=== PATIENT | male | born 1945 | race Two or more races ===

== ENCOUNTER 2024-02-08 10:33 | Inpatient (IN) | payer SELFPAY ==
[~2024-02-08] VITALS: Ht 157.5 cm; Wt 62.1 kg
[2024-02-08 11:42] LABS: BASOPHILS # (AUTO) 0.1 K/uL (0.0-0.2); BASOPHILS % (AUTO) 1.7 % (0.0-2.0); EOSINOPHILS # (AUTO) 1.6 K/uL (0.0-0.7); HEMATOCRIT 41 % (39-51); HEMOGLOBIN 13.8 g/dL (13.5-17.5); LYMPHOCYTES # (AUTO) 1.3 K/uL (0.8-4.8); LYMPHOCYTES % (AUTO) 20.9 % (20.0-44.0); MEAN CORPUSCULAR HEMOGLOBIN 32 PG (26.0-33.0); MEAN CORPUSCULAR HGB CONC 34 g/dl (31.0-36.0); MEAN CORPUSCULAR VOLUME 93 fL (80-96); MONOCYTES # (AUTO) 0.4 K/uL (0.1-1.30); MONOCYTES % (AUTO) 6.2 % (2.0-12.0); NEUTROPHILS # (AUTO) 2.9 K/uL (1.8-8.9); NEUTROPHILS % (AUTO) 45.7 % (43.0-81.0); PLATELET COUNT (AUTO) 120 K/uL (150-450); RED BLOOD CELL COUNT(AUTO) 4.39 MIL/uL (4.5-6.0); RED CELL DISTRIBUTION WIDTH 14.8 % (11.5-15.0); WHITE BLOOD COUNT (AUTO) 6.4 K/uL (4.3-11.0)
[2024-02-08] MEDS ORDERED: [UNRECOGNIZED DRUG - OTHER] PO (11:45)
[2024-02-08] MEDS ORDERED: [UNRECOGNIZED DRUG - OTHER] PO (11:45)
[2024-02-08] MEDS ORDERED: INSU100V7 SQ (11:45)
[2024-02-08] MEDS ORDERED: EMPA1TAB11 PO (11:45)
[2024-02-08] MEDS ORDERED: SEMA0.25 SQ (11:45)
[2024-02-08 11:51] LABS: CALCIUM, SERUM 8.8 mg/dL (8.5-10.1); CARBON DIOXIDE 20 mmol/L (21-32); CHLORIDE 102 mmol/L (98-107); CREATININE 1.1 mg/dL (0.6-1.3); GLUCOSE 162 mg/dL (74-106); POTASSIUM 4.6 mmol/L (3.5-5.1); SODIUM SERUM 136 mmol/L (136-145); UREA NITROGEN, BLOOD 21 mg/dL (7-18)
[2024-02-08 11:54] LABS: EOSINOPHILS % (AUTO) 25.5 % (0.0-6.0)
[2024-02-08] MEDS ORDERED: DEXTROSE 50%-WATER 50 ML DISP.SYRIN IV PRN (13:00)
[2024-02-08] MEDS ORDERED: MAG HYDROX/AL HYDROX/SIMETH 30 ML UDC PO PRN (13:00)
[2024-02-08] MEDS ORDERED: Medication Not On Formulary EA (Semaglutide (Ozempic) 0.25 MG) SQ SCH (13:00)
[2024-02-08] MEDS ORDERED: ONDANSETRON HCL/PF 4 MG/2 ML VIAL IVP PRN (13:00)
[2024-02-08] MEDS ORDERED: Z GUARD REMEDY 4 OZ OINT TP PRN (13:00)
[2024-02-08] MEDS ORDERED: MAGNESIUM HYDROXIDE 30 ML UDC PO PRN (13:00)
[2024-02-08 13:51] LABS: ANISOCYTOSIS 1+; BASOPHILS % (MANUAL) 0 % (0.0-2.0); EOSINOPHILS % (MANUAL) 23 % (0-4); LYMPHOCYTES % (MANUAL) 18 % (16-48); MONOCYTES % (MANUAL) 8 % (0-11.0); NEUTROPHILS % (MANUAL) 51 (42-76); PLATELET ESTIMATE DECREASED
[2024-02-08] MEDS: ASPIRIN EC 81 MG TABLET.DR PO STA (14:31)
[2024-02-08 16:00] VITALS: BP 125/69; TEMP 98.4; O2SAT 95
[2024-02-08] MEDS: BLOOD SUGAR DIAGNOSTIC 1 EACH STRIP IN SCH (17:51)
[2024-02-08] MEDS: INSULIN REGULAR, HUMAN 100 UNIT/ML 3 ML VIAL SQ PRN (18:09)
[2024-02-08 20:00] VITALS: BP 115/69; TEMP 98.1; O2SAT 93
[2024-02-08] MEDS: ENOXAPARIN SODIUM 40 MG/0.4 ML DISP.SYRIN SQ SCH (21:30)
[2024-02-08] MEDS: INSULIN GLARGINE, 100 UNIT/ML CARTRIDGE SQ SCH (21:54)
[2024-02-09] VITALS: BP 102/59; TEMP 97.5; O2SAT 93
[2024-02-09 04:00] VITALS: BP 109/65; TEMP 97.5; O2SAT 95
[2024-02-09 06:20] LABS: BASOPHILS # (AUTO) 0.1 K/uL (0.0-0.2); BASOPHILS % (AUTO) 1.3 % (0.0-2.0); EOSINOPHILS # (AUTO) 1.7 K/uL (0.0-0.7); EOSINOPHILS % (AUTO) 23.9 % (0.0-6.0); HEMATOCRIT 41 % (39-51); HEMOGLOBIN 13.4 g/dL (13.5-17.5); LYMPHOCYTES # (AUTO) 1.4 K/uL (0.8-4.8); LYMPHOCYTES % (AUTO) 20.1 % (20.0-44.0); MEAN CORPUSCULAR HEMOGLOBIN 31 PG (26.0-33.0); MEAN CORPUSCULAR HGB CONC 33 g/dl (31.0-36.0); MEAN CORPUSCULAR VOLUME 94 fL (80-96); MONOCYTES # (AUTO) 0.5 K/uL (0.1-1.30); MONOCYTES % (AUTO) 7.9 % (2.0-12.0); NEUTROPHILS # (AUTO) 3.2 K/uL (1.8-8.9); NEUTROPHILS % (AUTO) 46.8 % (43.0-81.0); PLATELET COUNT (AUTO) 116 K/uL (150-450); RED BLOOD CELL COUNT(AUTO) 4.31 MIL/uL (4.5-6.0); RED CELL DISTRIBUTION WIDTH 14.4 % (11.5-15.0); WHITE BLOOD COUNT (AUTO) 6.9 K/uL (4.3-11.0)
[2024-02-09 06:38] LABS: CALCIUM, SERUM 8.8 mg/dL (8.5-10.1); CARBON DIOXIDE 16 mmol/L (21-32); CHLORIDE 104 mmol/L (98-107); GLUCOSE 101 mg/dL (74-106); MAGNESIUM 2.2 mg/dL (1.8-2.4); PHOSPHORUS 4.2 mg/dL (2.5-4.9); POTASSIUM 3.8 mmol/L (3.5-5.1); SODIUM SERUM 134 mmol/L (136-145); UREA NITROGEN, BLOOD 24 mg/dL (7-18)
[2024-02-09 06:50] LABS: CHOLESTEROL 185 mg/dL (<200); HDL CHOLESTEROL 41 mg/dL (40-60); LDL 128 mg/dL (0-99); TRIGLYCERIDES 112 mg/dL (30-150)
[2024-02-09 07:00] VITALS: BP 116/53; TEMP 97.3; O2SAT 94
[2024-02-09 07:23] LABS: BASOPHILS % (MANUAL) 1 % (0.0-2.0); EOSINOPHILS % (MANUAL) 26 % (0-4); LYMPHOCYTES % (MANUAL) 18 % (16-48); MONOCYTES % (MANUAL) 7 % (0-11.0); NEUTROPHILS % (MANUAL) 48 (42-76); PLATELET ESTIMATE DECREASED
[2024-02-09] MEDS: ASPIRIN 81 MG TAB.CHEW PO SCH (08:38)
[2024-02-09] MEDS ORDERED: [UNRECOGNIZED DRUG - OTHER] PO SCH (09:00)
[2024-02-09] MEDS: LEVOTHYROXINE SODIUM 75 MCG TABLET PO SCH (10:51)
[2024-02-09 12:00] VITALS: BP 98/53; TEMP 97.2; O2SAT 94
[2024-02-09 16:00] VITALS: BP 101/57; TEMP 98.1; O2SAT 94
[2024-02-09 20:00] VITALS: BP 111/64; TEMP 98.2; O2SAT 93
[2024-02-10] VITALS: BP 113/62; TEMP 98; O2SAT 94
[2024-02-10] MEDS: ACETAMINOPHEN 325 MG TABLET PO PRN (00:11)
[2024-02-10 04:00] VITALS: BP 99/52; TEMP 97.5; O2SAT 95
[2024-02-10 05:00] VITALS: BP 99/52; TEMP 97.5; O2SAT 95
[2024-02-10 06:42] LABS: BASOPHILS # (AUTO) 0.1 K/uL (0.0-0.2); BASOPHILS % (AUTO) 1.4 % (0.0-2.0); EOSINOPHILS # (AUTO) 1.9 K/uL (0.0-0.7); HEMATOCRIT 40 % (39-51); HEMOGLOBIN 13.3 g/dL (13.5-17.5); LYMPHOCYTES # (AUTO) 1.5 K/uL (0.8-4.8); LYMPHOCYTES % (AUTO) 20.2 % (20.0-44.0); MEAN CORPUSCULAR HEMOGLOBIN 31 PG (26.0-33.0); MEAN CORPUSCULAR HGB CONC 33 g/dl (31.0-36.0); MEAN CORPUSCULAR VOLUME 94 fL (80-96); MONOCYTES # (AUTO) 0.6 K/uL (0.1-1.30); MONOCYTES % (AUTO) 8.3 % (2.0-12.0); NEUTROPHILS # (AUTO) 3.4 K/uL (1.8-8.9); NEUTROPHILS % (AUTO) 44.8 % (43.0-81.0); PLATELET COUNT (AUTO) 120 K/uL (150-450); RED BLOOD CELL COUNT(AUTO) 4.25 MIL/uL (4.5-6.0); RED CELL DISTRIBUTION WIDTH 14.4 % (11.5-15.0); WHITE BLOOD COUNT (AUTO) 7.5 K/uL (4.3-11.0)
[2024-02-10 06:45] LABS: EOSINOPHILS % (AUTO) 25.3 % (0.0-6.0)
[2024-02-10 07:00] LABS: CARBON DIOXIDE 18 mmol/L (21-32); CHLORIDE 102 mmol/L (98-107); GLUCOSE 105 mg/dL (74-106); SODIUM SERUM 133 mmol/L (136-145); UREA NITROGEN, BLOOD 24 mg/dL (7-18)
[2024-02-10 08:00] VITALS: BP 107/61; TEMP 97.5; O2SAT 97
[2024-02-10] MEDS ORDERED: NITR0.4T48 SL (10:10)
[2024-02-10] MEDS ORDERED: ASPI-1169 PO (10:10)
[2024-02-10] MEDS ORDERED: LEVO75TA PO (10:10)
[2024-02-10] MEDS ORDERED: INSU100V7 SQ (10:59)
[2024-02-10 11:34] LABS: ANISOCYTOSIS 1+; BASOPHILS % (MANUAL) 0 % (0.0-2.0); EOSINOPHILS % (MANUAL) 18 % (0-4); LYMPHOCYTES % (MANUAL) 16 % (16-48); MONOCYTES % (MANUAL) 7 % (0-11.0); NEUTROPHILS % (MANUAL) 58 (42-76); PLATELET ESTIMATE DECREASED
== END 2024-02-10 12:30 | disposition home or self-care (01) | DRG 313 ==
LOC: ER 10:38 → TELE 12:40
PROVIDERS: ADMIT Nurse Practitioner Acute Care; ATTEND Nurse Practitioner Acute Care
DX: R07.89 Other chest pain (principal); E03.9 Hypothyroidism, unspecified; E78.5 Hyperlipidemia, unspecified; I10 Essential (primary) hypertension; E11.65 Type 2 diabetes mellitus with hyperglycemia; Z79.4 Long term (current) use of insulin; R79.89 Other specified abnormal findings of blood chemistry; Z79.84 Long term (current) use of oral hypoglycemic drugs
CPT/HCPCS: 36415; 71045-TC; 80048-TC; 80061-TC; 82962-TC; 83735-TC; 84100-TC; 84439-TC; 84443-TC; 84484-TC; 85025-TC; 87081-TC; 93307-TC; G0378; J1650; J1815

== ENCOUNTER 2024-03-31 13:20 | Emergency (ER) | payer SELFPAY ==
[~2024-03-31] VITALS: Ht 167.6 cm; Wt 70.3 kg
[~2024-03-31 13:20] MED LIST: ASPI-1169 PO; EMPA1TAB11 PO; INSU100V7 SQ; LEVO75TA PO; NITR0.4T48 SL; SEMA0.25 SQ; [UNRECOGNIZED DRUG - OTHER] PO; [UNRECOGNIZED DRUG - OTHER] PO
[2024-03-31 13:33] VITALS: BP 120/62; TEMP 98; O2SAT 99
[2024-03-31] MEDS ORDERED: SYRI-614 SUBCUT (14:45)
[2024-03-31] MEDS ORDERED: LEVO75TA PO (14:45)
[2024-03-31] MEDS ORDERED: INSU100V7 SQ (14:45)
== END 2024-03-31 14:58 | disposition home or self-care (01) ==
LOC: ER 13:50
DX: E11.9 Type 2 diabetes mellitus without complications (principal); I10 Essential (primary) hypertension; E03.9 Hypothyroidism, unspecified; Z76.0 Encounter for issue of repeat prescription; Z79.82 Long term (current) use of aspirin; Z91.148 Patient's other noncompliance with medication regimen for other reason
CPT/HCPCS: 82962-TC